=== PATIENT | male | born 1980 ===

== ENCOUNTER 2020-06-20 17:59 | Emergency (ER) | payer SELFPAY ==
--- NOTE | 2020-06-20 18:09 | Emergency Department Report ---
Blank Doc - Documentation Documentation: 39-year-old male that presents with headache s/p trip and fall with LOC. Stated is on crutches and tripped. This initial assessment/diagnostic orders/clinical plan/treatment(s) is/are subject to change based on patient's health status, clinical progression and re- assessment by fellow clinical providers in the ED. Further treatment and workup at subsequent clinical providers discretion. Patient/guardians urged not to elope from the ED as their condition may be serious if not clinically assessed and managed. Initial orders include: 1- Patient sent to [facility] for further evaluation and treatment 2- CT head/cervcial spine 3- cervical collar
[2020-06-20 18:11] VITALS: BP 141/90
[2020-06-20] MEDS ORDERED: ONDANSETRON 4 MG ODT TAB PO ONE (19:25)
[2020-06-20] MEDS ORDERED: BUTALB/ACETAMINOPHEN/CAFFEINE TAB PO ONE (19:25)
--- NOTE | 2020-06-20 19:49 | Emergency Department Report ---
ED Headache HPI - General Chief Complaint: Headache Stated Complaint: HEADACHE Time Seen by Provider: 06/20/20 18:07 - History of Present Illness Initial Comments: Patient is a 39-year-old -[place] male with no past medical history and who is status post left Achilles tendon surgery presents to the ED with complaint of severe headache with nausea and blurry vision after he slipped and fell down on the floor, landed on his back and hit his head against a wooden floor over 12 hours ago. Patient states that he decided at the time "to sleep it off" but the headache has been persistent and worse. Patient denies vomiti ng, dizziness, syncope, seizures, neck pain, chest pain, shortness of breath, abdominal pain, vision loss, hearing loss, hemoptysis, abdominal pain, back pain, numbness and tingling or weakness of upper and lower extremities bilaterally. Timing/Duration: constant, waxing and waning, other (over 12 hours ago) Quality: severe, pressure, sharp Head Injury Location: global Recent Head Trauma: head trauma < 24 hrs ago Modifying Factors: improves with: medication Associated Symptoms: denies symptoms, nausea/vomiting, vision changes (blurry vision). denies: confusion, fatigue, facial pain, fever/chills, flushing, loss of consciousness, nasal congestion, nasal drainage, numbness in legs/feet, rash, seizures, sinus infection, stiff neck, weakness ED Review of Systems ROS: Stated complaint: HEADACHE Other details as noted in HPI Constitutional: denies: chills, fever Eyes: vision change (Blurry vision). denies: eye pain, eye discharge ENT: denies: ear pain, throat pain Respiratory: denies: cough, shortness of breath, wheezing Cardiovascular: denies: chest pain, palpitations Endocrine: no symptoms reported Gastrointestinal: nausea. denies: abdominal pain, diarrhea Genitourinary: denies: urgency, dysuria Musculoskeletal: arthralgia (Left ankle pain, status post left Achilles tendon surgery 3 weeks ago). denies: back pain, joint swelling Skin: denies: rash, lesions Neurological: headache. denies: weakness, paresthesias Psychiatric: denies: anxiety, depression Hematological/Lymphatic: denies: easy bleeding, easy bruising ED Past Medical Hx - Past Medical History Previous Medical History?: Yes Additional medical history: left Achilles tendon - Surgical History Past Surgical History?: Yes Additional Surgical History: Left Achilles Tendon - Social History Smoking Status: Former Smoker Substance Use Type: None ED Physical Exam - General Limitations: Physical Limitation General appearance: alert, in no apparent distress - Head Head exam: Present: atraumatic, normocephalic, normal inspection - Eye Eye exam: Present: normal appearance, PERRL, EOMI - ENT ENT exam: Present: normal exam, normal orophraynx, mucous membranes moist, TM's normal bilaterally, normal external ear exam - Neck Neck exam: Present: normal inspection, full ROM. Absent: tenderness - Respiratory Respiratory exam: Present: normal lung sounds bilaterally. Absent: respiratory distress, wheezes, rales, stridor, chest wall tenderness, accessory muscle use, prolonged expiratory - Cardiovascular Cardiovascular Exam: Present: normal rhythm, tachycardia, normal heart sounds. Absent: systolic murmur, diastolic murmur, rubs, gallop - GI/Abdominal GI/Abdominal exam: Present: soft, normal bowel sounds. Absent: tenderness, hyperactive bowel sounds, organomegaly, mass - Extremities Exam Extremities exam: Present: normal inspection, full ROM, tenderness (Palpable left ankle tenderness with limited range of motion due to pain, the ankle is splinted in a cast due to a recent left Achilles tendon surgery 3 weeks ago), normal capillary refill. Absent: calf tenderness - Back Exam Back exam: Present: normal inspection, full ROM. Absent: tenderness, CVA tenderness (R), muscle spasm, paraspinal tenderness, vertebral tenderness - Neurological Exam Neurological exam: Present: alert, oriented X3, CN II-XII intact, normal gait, reflexes normal - Psychiatric Psychiatric exam: Present: normal affect, normal mood - Skin Skin exam: Present: warm, dry, intact, normal color. Absent: rash ED Course Vital Signs 06/20/20 18:08 Temperature 98.8 F Pulse Rate 105 H Respiratory 18 Rate Blood Pressure 141/90 O2 Sat by Pulse 95 Oximetry ED Medical Decision Making - Medical Decision Making This is a 39-year-old -[place] male with no past medical history and who is status post left Achilles tendon surgery presents to the ED with complaint of severe headache with nausea and blurry vision after he slipped and fell down on the floor, landed on his back and hit his head against a wooden floor over 12 hours ago. Patient states that he decided at the time "to sleep it off" but the headache has been persistent and worse. In the ED, patient is alert and oriented x3 and is not in distress but appears to be in pain. Pain medications were ordered for the patient, the head CT scan without contrast and C-spine CT scan without contrast was also ordered. Patient however left AMA stating that he did not want to wait for head CT scan without contrast because he was in pain and had to go home. Patient therefore walked out of the ED although he did not sign the appropriate paperwork for AMA. - Differential Diagnosis Head injury; concussion; postconcussion headache; cervical sprain; migraine Critical care attestation.: If time is entered above; I have spent that time in minutes in the direct care of this critically ill patient, excluding procedure time. ED Disposition Clinical Impression: Acute post-traumatic headache, not intractable, Post-concussion headache Contusion of scalp Qualifiers: Encounter type: initial encounter Qualified Code(s): S00.03XA - Contusion of scalp, initial encounter Disposition: DC-07 LEFT AGAINST MED ADVICE Is pt being admited?: No Does the pt Need Aspirin: No Condition: Stable Instructions: Acute Headache (ED), Post Concussion Syndrome (ED), Minor Head Injury (ED), Concussion (ED) Time of Disposition: 19:53 Print Language: EGYPTIAN
== END 2020-06-20 19:45 | disposition left against medical advice (07) ==
LOC: ED 17:59
DX: S00.03XA Contusion of scalp, initial encounter (principal); G44.319 Acute post-traumatic headache, not intractable; Z79.899 Other long term (current) drug therapy; Z98.890 Other specified postprocedural states; Z87.891 Personal history of nicotine dependence; W18.30XA Fall on same level, unspecified, initial encounter; Y93.89 Activity, other specified; Y92.89 Other specified places as the place of occurrence of the external cause; Y99.8 Other external cause status